=== PATIENT | female | born 1990 | race Two or more races ===

== ENCOUNTER 2017-12-28 07:26 | Emergency (ER) | payer BC, MEDICAID ==
--- NOTE | 2017-12-28 14:27 | ER ---
DATE SEEN: 12/28/2017 TIME SEEN: The patient was seen at approximately 0815 hours. 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 She has had slipped disk and was treated for 2 years with physical therapy. She has had hip pain in 2008 without a fracture. PREVIOUS SURGERY: Negative. ALLERGIES: Negative. MEDICATIONS: Negative. REVIEW OF SYSTEMS: Negative, except for noted above. More specifically, has mid-thoracic and low back pain. It radiates down to her left suprapatellar region. Has mild dysesthesia on and off. It hurts to move, sit, walk, bowel movements, cough or sneeze, or go upstairs. She denies fever, gastrointestinal symptoms, or urinary tract symptoms. No urine loss. No constipation or difficulty passing urine. SOCIAL HISTORY: She does not use street drugs. PHYSICAL EXAMINATION: VITAL SIGNS: Blood pressure on arrival 119/71, mean arterial pressure 81, respirations 18, pulse 61, oxygen saturation 100%, and temperature 97.4 degrees Fahrenheit. Dismissal blood pressure was 109/61, respiratory rate 18, heart rate 63, and 100% oxygen saturation. GENERAL: The patient is attended by her mother. The patient is sitting on a gurney, has marked pain with any movement. Getting off chair and sitting up in the gurney, she gets marked pain. HEENT: PERRLA intact. Pharynx without abnormality. NECK: No thyromegaly or masses in the neck. LUNGS: Clear without rales, rhonchi, or wheezes. HEART: S1, S2. No murmur. No irregular rate or rhythm. ABDOMEN: Soft. No guarding. No abdominal discomfort. MUSCULOSKELETAL: She has mid-thoracic T6 through T9 pain in her spinous and paraspinal muscles and has lower back pain. She has a slight "touch me not" response with touching her back resulting in marked pain response. Straight leg raise is positive on the right at 30 degrees, left at 45 degrees. She has moderate lumbar discomfort, L2 through L5-S1. Minimal paraspinal muscle discomfort. She had difficulty standing and moving about. Mild paraspinal muscle spasm. Paraspinal muscles lumbar and of mid-thoracic. ASSESSMENT: Upper back pain and low back pain, etiology determined. She has had apparently MRI years ago. Rule out radicular pain on the left side as she has pain that radiates to the left popliteal area. PLAN: Robaxin 750 mg q.i.d., 40 tablets. Follow up with her doctor in a week. Also, she is to use Tylenol 1000 mg and ibuprofen 600 mg every 6 hours. Also for breakthrough pain, Vicodin 10 tablets one q.4 to 6 hours. We discussed opioid crisis in country and opiates may be a gateway for further use, and advised her that I would be conservative about providing a number of Vicodin tablets. The patient is excused from work for 6 days. She is also advised on walking as the fastest and most effective way to improve her back pain per the [employer] large study. /[id number] TEJAS/ISAIAH HIGGINS
--- NOTE | 2018-01-01 07:58 | ER ---
DATE SEEN: 12/28/2017 ADDENDUM TIME SEEN: Correction: The patient was seen at 0720 hours and not 0820 hours. /[id number] TEJAS/ISAIAH
== END 2017-12-28 08:55 | disposition home or self-care (01) ==
LOC: FB.ED 07:26
DX: M62.830 Muscle spasm of back (principal)
CPT/HCPCS: 99282; 99283

== ENCOUNTER 2018-09-06 21:14 | Emergency (ER) | payer SELFPAY ==
[2018-09-06] MEDS ORDERED: Ketorolac 60 MG/2 ML SDV IM ONE (21:32)
[2018-09-06] MEDS ORDERED: Albuterol/Ipratropium 3.0-0.5 MG/3 ML Neb Soln NEB ONE (21:32)
--- NOTE | 2018-09-06 21:34 | EDM.PDOC ---
ED HPI GENERAL MEDICAL PROBLEM - General Chief Complaint: Respiratory Problem Stated Complaint: TROUBLE BREATHING, CHEST HURTS Time Seen by Provider: 09/06/18 21:14 Source of Information: Reports: Patient, Family History Limitations: Reports: Respiratory Distress - History of Present Illness INITIAL COMMENTS - FREE TEXT/NARRATIVE: 27 y.o. f came to the ed with her mom due to SOB. Pt has a H/O asthma, but had no asthma symptoms in the past few years and did not renew her albuterol inhaler. She was exposed to extreme cold today what she thinks put here in acute respiratory distress. Py had nonproductive cough, no fever, no chills, Chest pain with cough, denies sick contact, does not smoke. She is exposed to smokers at work, however. 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 No other acute medical issues. 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: Reports: Other (see below) (none) Generalized Pain Score (Numeric/FACES): 5 - Related Data Allergies Allergy/AdvReac Type Severity Reaction Status Date / Time No Known Allergies Allergy Verified 09/06/18 22:14 Home Meds: Home Meds Albuterol [Proventil HFA] 2 puff INH Q4H PRN #1 inhaler 09/06/18 [Rx] predniSONE 20 mg PO WITHBREAKFAST #3 tab 09/06/18 [Rx] 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: Musculoskeletal History: Reports: Back Pain, Chronic - Past Surgical History GI Surgical History: Reports: Appendectomy Social & Family History - Family History Family Medical History: Noncontributory - Caffeine Use Caffeine Use: Reports: Soda ED ROS GENERAL - Review of Systems Review Of Systems: See Below Constitutional: Reports: No Symptoms HEENT: Reports: No Symptoms Respiratory: Reports: Shortness of Breath, Wheezing Cardiovascular: Reports: No Symptoms Endocrine: Reports: No Symptoms GI/Abdominal: Reports: No Symptoms : Reports: No Symptoms Musculoskeletal: Reports: No Symptoms Skin: Reports: No Symptoms Neurological: Reports: No Symptoms Psychiatric: Reports: No Symptoms Hematologic/Lymphatic: Reports: No Symptoms Immunologic: Reports: No Symptoms ED EXAM, GENERAL - Physical Exam Exam: See Below Exam Limited By: Respiratory Distress General Appearance: Alert, WD/WN, Moderate Distress Eye Exam: Bilateral Eye: Normal Inspection Ears: Normal External Exam Ear Exam: Bilateral Ear: Auricle Normal Nose: Normal Inspection, Normal Mucosa, No Blood Throat/Mouth: Normal Lips, Normal Voice, No Airway Compromise Head: Atraumatic, Normocephalic Neck: Normal Inspection, Supple, Non-Tender, Full Range of Motion Respiratory/Chest: Respiratory Distress, Wheezing Cardiovascular: Normal Peripheral Pulses, Regular Rate, Rhythm, No Edema, No Gallop, No Rub Peripheral Pulses: 1+: Brachial (R) GI/Abdominal: Normal Bowel Sounds, Soft, Non-Tender, No Organomegaly, No Abnormal Bruit, No Mass, Pelvis Stable (Female) Exam: Deferred Rectal (Female) Exam: Deferred Back Exam: Normal Inspection, Full Range of Motion Extremities: Normal Inspection, Normal Range of Motion, Non-Tender, No Pedal Edema, Normal Capillary Refill Neurological: Alert, Oriented, CN II-XII Intact, Normal Cognition, Normal Gait Psychiatric: Normal Affect, Normal Mood Skin Exam: Warm, Dry, Intact, Normal Color, No Rash Lymphatic: No Adenopathy Course - Vital Signs Text/Narrative:: 27 y.o. f came to the ed with her mom due to SOB. Pt has a H/O asthma, but had no asthma symptoms in the past few years and did not renew her albuterol inhaler. She was exposed to extreme cold today what she thinks put here in acute respiratory distress. Py had nonproductive cough, no fever, no chills, Chest pain with cough, denies sick contact, does not smoke. She is exposed to smokers at work, however. 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 No other acute medical issues. BP 157/105 RR 22 Pulse ox 97% on RA Temp 35.8 Pulse 95 PE: WNWD female in resp distress, chest pain with inspirations Imaging: CXR: NAD Labs: Not indicated Impression: Asthma attack, possible cold induced. Pleuritic chest pain Tx: Duo neb, Albuterol neb Prednisone. Toradol Reexam: improved 90% Plan: D/C with instructions Last Recorded V/S: Last Vital Signs Temp 35.8 C 09/06/18 21:14 Pulse 78 09/06/18 23:30 Resp 20 09/06/18 23:30 BP 153/90 H 09/06/18 23:30 Pulse Ox 100 09/06/18 23:30 - Orders/Labs/Meds Orders: Active Orders 24 hr Category Date Time Status RT Aerosol Therapy [RC] ASDIRECTED Care 09/06/18 21:33 Active RT Aerosol Therapy [RC] ASDIRECTED Care 09/06/18 22:22 Active Chest 2V [CR] Stat Exams 09/06/18 21:32 Taken Meds: Medications Discontinued Medications Generic Name Dose Route Start Last Admin Trade Name Freq PRN Reason Stop Dose Admin Albuterol 2.5 mg 09/06/18 22:21 09/06/18 22:45 Proventil Neb Soln NEB 09/06/18 22:22 2.5 mg ONETIME ONE Administration Albuterol/Ipratropium 3 ml 09/06/18 21:32 09/06/18 21:53 Duoneb 3.0-0.5 Mg/3 Ml NEB 09/06/18 21:33 3 ml ONETIME ONE Administration Ketorolac Tromethamine 60 mg 09/06/18 21:32 09/06/18 21:49 Toradol IM 09/06/18 21:33 60 mg ONETIME ONE Administration Prednisone 40 mg 09/06/18 22:21 09/06/18 22:45 Prednisone PO 09/06/18 22:22 40 mg ONETIME ONE Administration Departure - Departure Time of Disposition: 23:17 Disposition: Home, Self-Care 01 Condition: Good Clinical Impression: Asthma attack Qualifiers: Asthma severity: moderate Asthma persistence: unspecified Qualified Code(s): J45.901 - Unspecified asthma with (acute) exacerbation - Discharge Information Prescriptions: Albuterol [Proventil HFA] 2 puff INH Q4H PRN #1 inhaler PRN Reason: for cough, SOB predniSONE 20 mg PO WITHBREAKFAST #3 tab Instructions: Asthma, Adult, [id number], Asthma Attack, Prednisone tablets Referrals: Perez Riddle MD [Primary Care Provider] - Forms: ED Department Discharge, ED Return to Work/School Form Additional Instructions: Please use the albuterol inhaler as recommended, prednisone as recommend, please f/u with your PMD, come back if your symptoms get worse acutely. - My Orders Last 24 Hours: My Active Orders 09/06/18 21:32 Chest 2V [CR] Stat 09/06/18 21:33 RT Aerosol Therapy [RC] ASDIRECTED 09/06/18 22:22 RT Aerosol Therapy [RC] ASDIRECTED - Assessment/Plan Last 24 Hours: My Active Orders 09/06/18 21:32 Chest 2V [CR] Stat 09/06/18 21:33 RT Aerosol Therapy [RC] ASDIRECTED 09/06/18 22:22 RT Aerosol Therapy [RC] ASDIRECTED
[2018-09-06] MEDS ORDERED: predniSONE 20 MG Tab PO ONE (22:21)
[2018-09-06] MEDS ORDERED: Albuterol 0.083% 2.5 MG/3 ML Neb Soln NEB ONE (22:21)
--- NOTE | 2018-09-09 13:02 | CR ---
INDICATION: Cough, shortness of breath. CHEST: PA and lateral views of the chest were obtained 09/06/18 and revealed the heart, mediastinum, and bony thorax to be unremarkable. A mild degree of exogenous obesity is suggested. A definite active infiltrate or effusion was not identified. However, there is noted a mild to moderate degree of bronchial wall cuffing in the mid to lower lung mathur, especially the lung bases, which may represent active peribronchial disease and/or fibrosis, and should be correlated clinically. IMPRESSION: Bronchial wall cuffing - correlate clinically. MTDD
== END 2018-09-06 23:30 | disposition home or self-care (01) ==
LOC: FB.ED 21:14
DX: J45.901 Unspecified asthma with (acute) exacerbation (principal); R07.81 Pleurodynia; Z77.22 Contact with and (suspected) exposure to environmental tobacco smoke (acute) (chronic)
CPT/HCPCS: 71046; 87804; 94640; 96372; 99284; A9270; J1885; J7620-GY

== ENCOUNTER 2018-10-26 17:07 | Emergency (ER) | payer SELFPAY ==
[2018-10-26] MEDS ORDERED: Ondansetron 4 MG/2 ML SDV IVPUSH ONE (17:40)
[2018-10-26] MEDS ORDERED: Sodium Chloride 0.9% 1,000 ML IV ONE ×2 (17:40→19:00)
[2018-10-26] MEDS ORDERED: SUMAtriptan 6 MG/0.5 ML SDV SUBCUT ONE (17:40)
--- NOTE | 2018-10-26 17:43 | EDM.PDOC ---
ED HPI GENERAL MEDICAL PROBLEM - General Chief Complaint: Headache Stated Complaint: HEADACHE, LT SIDE PAIN AND VOMITTING Time Seen by Provider: 10/26/18 17:30 Source of Information: Reports: Patient History Limitations: Reports: No Limitations - History of Present Illness INITIAL COMMENTS - FREE TEXT/NARRATIVE: 27 y.o.w.f came to the ed due to nausea and headache at her left temp area. No trauma, pt had migraine H/A in the past. No vomiting, no SOB, pt has pain at her RUQ of her abdomen as well. pt says she drinks about 2 liters of water a day. No other acute medical issues. BP 162/85 RR 16 Pulse ox 100% on RA Temp 36.7 pulse 69 Onset Date: 10/26/18 Onset Time: 15:00 Duration: Hour(s): Location: Reports: Head, Face Quality: Reports: Dull, Same as Previous Episode Severity: Moderate Improves with: Reports: None, Medication Worsens with: Reports: None Context: Reports: Other Headache Pain Score (Numeric/FACES): 7 Abdominal Pain Score (Numeric/FACES): 4 - Related Data Allergies Allergy/AdvReac Type Severity Reaction Status Date / Time No Known Allergies Allergy Verified 10/26/18 17:34 Home Meds: Home Meds Albuterol [Proventil HFA] 2 puff INH Q4H PRN #1 inhaler 09/06/18 [Rx] Acetaminophen [Tylenol] 650 mg PO DAILY 10/26/18 [History] cloNIDine [Catapres] 0.1 mg PO DAILY #4 tab 10/26/18 [Rx] Past Medical History Respiratory History: Reports: Asthma Other Respiratory History: as a child 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: Musculoskeletal History: Reports: Back Pain, Chronic Endocrine/Metabolic History: Reports: Obesity/BMI 30+ - Past Surgical History GI Surgical History: Reports: Appendectomy Female Surgical History: Reports: Tubal Ligation Social & Family History - Family History Family Medical History: Noncontributory - Tobacco Use Smoking Status *Q: Never Smoker - Caffeine Use Caffeine Use: Reports: None - Recreational Drug Use Recreational Drug Use: No ED ROS GENERAL - Review of Systems Review Of Systems: See Below Constitutional: Reports: No Symptoms HEENT: Reports: No Symptoms Respiratory: Reports: No Symptoms Cardiovascular: Reports: No Symptoms Endocrine: Reports: No Symptoms GI/Abdominal: Reports: Abdominal Pain (RUQ) : Reports: No Symptoms Musculoskeletal: Reports: No Symptoms Skin: Reports: No Symptoms Neurological: Reports: No Symptoms Psychiatric: Reports: No Symptoms Hematologic/Lymphatic: Reports: No Symptoms Immunologic: Reports: No Symptoms ED EXAM, GI/ABD - Physical Exam Exam: See Below Exam Limited By: No Limitations General Appearance: Alert, WD/WN, Mild Distress Eyes: Bilateral: Normal Appearance Ears: Normal External Exam Nose: Normal Inspection, Normal Mucosa Throat/Mouth: Normal Inspection, Normal Lips, Normal Voice, No Airway Compromise Head: Atraumatic, Normocephalic Neck: Normal Inspection, Supple, Non-Tender, Full Range of Motion Respiratory/Chest: No Respiratory Distress, Lungs Clear Cardiovascular: Normal Peripheral Pulses, Regular Rate, Rhythm, No Edema, No JVD GI/Abdominal Exam: Normal Bowel Sounds, Tender (RUQ of abdomen) (Female) Exam: Deferred Rectal (Female) Exam: Deferred Back Exam: Normal Inspection, Full Range of Motion Extremities: Normal Inspection, Normal Range of Motion, Non-Tender Neurological: Alert, Oriented, CN II-XII Intact, Normal Cognition, Normal Gait Psychiatric: Normal Affect, Normal Mood Skin Exam: Warm, Dry, Intact, Normal Color, No Rash Lymphatic: No Adenopathy Course - Vital Signs Text/Narrative:: 27 y.o.w.f came to the ed due to nausea and headache at her left temp area. No trauma, pt had migraine H/A in the past. No vomiting, no SOB, pt has pain at her RUQ of her abdomen as well. pt says she drinks about 2 liters of water a day. No other acute medical issues. BP 162/85 RR 16 Pulse ox 100% on RA Temp 36.7 pulse 69 PE: WNWD W F with H/O and nausea Imaging: Not indicated Labs: CBC neg BMP: pos for BUN 27 Cr. 2.8 GFR 24 UA: Micr. Hematuria Impression: Migraine H/A RUQ abd pain, renal insufficiency (GFR) with hematuria. Tx: Dorian, Imitrex, NS Reexam: Her H/A subsided, his CR improved to 2,4 Plan: D/C with instructions Last Recorded V/S: Last Vital Signs Temp 36.8 C 10/26/18 21:41 Pulse 78 10/26/18 21:41 Resp 14 10/26/18 21:41 BP 148/91 H 10/26/18 22:41 Pulse Ox 100 10/26/18 21:41 - Orders/Labs/Meds Orders: Active Orders 24 hr Category Date Time Status Peripheral IV Insertion Adult [OM.PC] Routine Oth 10/26/18 17:55 Ordered Labs: Laboratory Tests 10/26/18 10/26/18 10/26/18 Range/Units 17:55 17:55 17:55 WBC 6.5 (4.5-12.0) X10-3/uL RBC 3.95 (3.23-5.20) x10(6)uL Hgb 11.5 (11.5-15.5) g/dL Hct 34.7 (30.0-51.3) % MCV 87.8 (80-96) fL MCH 29.1 (27.7-33.6) pg MCHC 33.1 (32.2-35.4) g/dL RDW 11.7 (11.5-15.5) % Plt Count 266 (125-369) X10(3)uL MPV 9.5 (7.4-10.4) fL Neut % (Auto) 71.2 (46-82) % Lymph % (Auto) 19.2 (13-37) % Posey % (Auto) 7.0 (4-12) % Eos % (Auto) 2 (1.0-5.0) % Baso % (Auto) 1 (0-2) % Neut # (Auto) 4.6 (1.6-8.3) # Lymph # (Auto) 1.2 (0.6-5.0) # Posey # (Auto) 0.5 (0.0-1.3) # Eos # (Auto) 0.1 (0.0-0.8) # Baso # (Auto) 0.0 (0.0-0.2) # PT 9.9 (8.7-11.1) INR 1.02 (0.89-1.13) Sodium 140 (135-145) mmol/L Potassium 4.4 (3.5-5.3) mmol/L Chloride 107 (100-110) mmol/L Carbon Dioxide 22 (21-32) mmol/L BUN 27 H (7-18) mg/dL Creatinine 2.4 H* (0.55-1.02) mg/dL Est Cr Clr Drug Dosing 26.33 mL/min Estimated GFR (MDRD) 24 L (>60) BUN/Creatinine Ratio 11.3 (9-20) Glucose 89 (80-116) mg/dL Calcium 8.9 (8.6-10.2) mg/dL Total Bilirubin 0.2 (0.1-1.3) mg/dL Direct Bilirubin 0.08 L (0.10-0.20) mg/dL AST 17 (5-25) IU/L ALT 17 (12-36) U/L Alkaline Phosphatase 86 (56-112) IU/L Total Protein 7.0 (6.0-8.0) g/dL Albumin 3.4 L (3.5-5.2) g/dL Urine Color (YELLOW) Urine Appearance (CLEAR) Urine pH (5.0-6.5) Ur Specific [place] (1.010-1.025) Urine Protein (NEGATIVE) mg/dL Urine Glucose (UA) (NORMAL) mg/dL Urine Ketones (NEGATIVE) mg/dL Urine Occult Blood (NEGATIVE) Urine Nitrite (NEGATIVE) Urine Bilirubin (NEGATIVE) Urine Urobilinogen (NEGATIVE) mg/dL Ur Leukocyte Esterase (NEGATIVE) Urine RBC (0-5) Urine WBC (0-5) Ur Squamous Epith Cells (NS,R,O) Urine Bacteria (NS) 10/26/18 10/26/18 Range/Units 19:19 20:30 WBC (4.5-12.0) X10-3/uL RBC (3.23-5.20) x10(6)uL Hgb (11.5-15.5) g/dL Hct (30.0-51.3) % MCV (80-96) fL MCH (27.7-33.6) pg MCHC (32.2-35.4) g/dL RDW (11.5-15.5) % Plt Count (125-369) X10(3)uL MPV (7.4-10.4) fL Neut % (Auto) (46-82) % Lymph % (Auto) (13-37) % Posey % (Auto) (4-12) % Eos % (Auto) (1.0-5.0) % Baso % (Auto) (0-2) % Neut # (Auto) (1.6-8.3) # Lymph # (Auto) (0.6-5.0) # Posey # (Auto) (0.0-1.3) # Eos # (Auto) (0.0-0.8) # Baso # (Auto) (0.0-0.2) # PT (8.7-11.1) INR (0.89-1.13) Sodium 140 (135-145) mmol/L Potassium 4.9 (3.5-5.3) mmol/L Chloride 111 H (100-110) mmol/L Carbon Dioxide 20 L (21-32) mmol/L BUN 25 H (7-18) mg/dL Creatinine 2.1 H* (0.55-1.02) mg/dL Est Cr Clr Drug Dosing 30.10 mL/min Estimated GFR (MDRD) 28 L (>60) BUN/Creatinine Ratio 11.9 (9-20) Glucose 85 (80-116) mg/dL Calcium 7.8 L (8.6-10.2) mg/dL Total Bilirubin (0.1-1.3) mg/dL Direct Bilirubin (0.10-0.20) mg/dL AST (5-25) IU/L ALT (12-36) U/L Alkaline Phosphatase (56-112) IU/L Total Protein (6.0-8.0) g/dL Albumin (3.5-5.2) g/dL Urine Color Yellow (YELLOW) Urine Appearance Slightly cloudy (CLEAR) Urine pH 6.5 (5.0-6.5) Ur Specific [place] 1.005 L (1.010-1.025) Urine Protein 30 H (NEGATIVE) mg/dL Urine Glucose (UA) Normal (NORMAL) mg/dL Urine Ketones Negative (NEGATIVE) mg/dL Urine Occult Blood Large H (NEGATIVE) Urine Nitrite Negative (NEGATIVE) Urine Bilirubin Negative (NEGATIVE) Urine Urobilinogen Normal (NEGATIVE) mg/dL Ur Leukocyte Esterase Negative (NEGATIVE) Urine RBC 75-100 H (0-5) Urine WBC 0-5 (0-5) Ur Squamous Epith Cells Occasional (NS,R,O) Urine Bacteria Rare H (NS) Meds: Medications Discontinued Medications Generic Name Dose Route Start Last Admin Trade Name Joselyn PRN Reason Stop Dose Admin Clonidine HCl 0.1 mg 10/26/18 22:04 10/26/18 22:08 Catapres PO 10/26/18 22:05 0.1 mg ONETIME STA Administration Sodium Chloride 1,000 mls @ 999 mls/hr 10/26/18 17:40 10/26/18 17:57 Normal Saline IV 10/26/18 18:40 999 mls/hr .BOLUS ONE Administration Sodium Chloride 1,000 mls @ 999 mls/hr 10/26/18 19:00 10/26/18 19:01 Normal Saline IV 10/26/18 20:00 999 mls/hr .BOLUS ONE Administration Ondansetron HCl 8 mg 10/26/18 17:40 10/26/18 17:59 Zofran IVPUSH 10/26/18 17:41 8 mg ONETIME ONE Administration Sodium Chloride 10 ml 10/26/18 17:55 10/26/18 17:55 Saline Flush FLUSH 10 ml ASDIRECTED PRN Administration Keep Vein Open Sumatriptan Succinate 6 mg 10/26/18 17:40 10/26/18 18:01 Imitrex SUBCUT 10/26/18 17:41 6 mg ONETIME ONE Administration Departure - Departure Time of Disposition: 21:33 Disposition: Home, Self-Care 01 Condition: Good Clinical Impression: Renal insufficiency, HTN (hypertension) Migraine Qualifiers: Migraine type: without aura Intractability: not intractable - Discharge Information Prescriptions: cloNIDine [Catapres] 0.1 mg PO DAILY #4 tab Instructions: Acute Kidney Injury, Adult, Migraine Headache Referrals: Perez Riddle MD [Primary Care Provider] - Forms: ED Department Discharge, ED Return to Work/School Form Additional Instructions: Please take Tylenol for pain, please f/u with your PMD regarding your renal insufficiency 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 Please come back if your symptoms get worse acutely. - My Orders Last 24 Hours: My Active Orders 10/26/18 17:55 Peripheral IV Insertion Adult [OM.PC] Routine - Assessment/Plan Last 24 Hours: My Active Orders 10/26/18 17:55 Peripheral IV Insertion Adult [OM.PC] Routine
[2018-10-26] MEDS ORDERED: Sodium Chloride 0.9% 10 ML Syringe FLUSH PRN (17:55)
[2018-10-26] MEDS ORDERED: cloNIDine 0.1 MG Tab PO STA (22:04)
== END 2018-10-26 22:56 | disposition home or self-care (01) ==
LOC: FB.ED 17:07
DX: G43.909 Migraine, unspecified, not intractable, without status migrainosus (principal); N28.9 Disorder of kidney and ureter, unspecified; R31.9 Hematuria, unspecified; R10.11 Right upper quadrant pain; I10 Essential (primary) hypertension; Z79.899 Other long term (current) drug therapy
CPT/HCPCS: 36415; 80048; 80076; 81001; 85025; 85610; 96361; 96372; 96374; 99284; A9270; J2405; J3030; J7030

== ENCOUNTER 2018-11-17 16:52 | Emergency (ER) | payer MEDICAID ==
--- NOTE | 2018-11-17 17:46 | EDM.PDOC ---
ED HPI GENERAL MEDICAL PROBLEM - General Chief Complaint: General Stated Complaint: SOB, RENAL FAILURE Time Seen by Provider: 11/17/18 16:52 Source of Information: Reports: Patient, Family History Limitations: Reports: No Limitations - History of Present Illness INITIAL COMMENTS - FREE TEXT/NARRATIVE: 27 y.o.w.f with CRI came to the ED with bilat flank pain and not feeling well. Pt was seen on 10/26/2018 for same. She has an appointment with her voice over artist end of November 2018. No N/V/D or dizziness. No trauma. No F/C. No other acute medical issues. BP 111/88 RR 18 Pulse ox 100% on RA Pulse 94 Temp 36.4 Onset Date: 10/22/18 Onset Time: 08:00 Duration: Day(s):, Week(s):, Intermittent Location: Reports: Back, Pelvis Quality: Reports: Burning, Same as Previous Episode Severity: Mild Improves with: Reports: Medication Worsens with: Reports: Movement Context: Reports: Other Associated Symptoms: Reports: No Other Symptoms manish kidney/flank Pain Score (Numeric/FACES): 8 - Related Data Allergies Allergy/AdvReac Type Severity Reaction Status Date / Time No Known Allergies Allergy Verified 11/17/18 17:10 Home Meds: Home Meds Acetaminophen [Tylenol] 650 mg PO DAILY 10/26/18 [History] cloNIDine [Catapres] 0.1 mg PO DAILY #4 tab 10/26/18 [Rx] levoFLOXacin [Levofloxacin] 250 mg PO DAILY #10 tablet 11/17/18 [Rx] Past Medical History Respiratory History: Reports: Asthma Other Respiratory History: as a child 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: Musculoskeletal History: Reports: Back Pain, Chronic Endocrine/Metabolic History: Reports: Obesity/BMI 30+ - Past Surgical History GI Surgical History: Reports: Appendectomy Female Surgical History: Reports: Tubal Ligation Social & Family History - Family History Family Medical History: Noncontributory - Caffeine Use Caffeine Use: Reports: None ED ROS GENERAL - Review of Systems Review Of Systems: See Below Constitutional: Reports: No Symptoms HEENT: Reports: No Symptoms Respiratory: Reports: No Symptoms Cardiovascular: Reports: No Symptoms Endocrine: Reports: No Symptoms GI/Abdominal: Reports: No Symptoms : Reports: Dysuria, Flank Pain (bilaterally) Musculoskeletal: Reports: No Symptoms Skin: Reports: No Symptoms Neurological: Reports: No Symptoms Psychiatric: Reports: No Symptoms Hematologic/Lymphatic: Reports: No Symptoms Immunologic: Reports: No Symptoms ED EXAM, GENERAL - Physical Exam Exam: See Below Exam Limited By: No Limitations General Appearance: Alert, WD/WN, Mild Distress Eye Exam: Bilateral Eye: Normal Inspection Ears: Normal External Exam Ear Exam: Bilateral Ear: Auricle Normal Nose: Normal Inspection, Normal Mucosa Throat/Mouth: Normal Inspection, Normal Lips, Normal Voice, No Airway Compromise Head: Atraumatic, Normocephalic Neck: Normal Inspection, Supple, Non-Tender, Full Range of Motion Respiratory/Chest: No Respiratory Distress, Lungs Clear, Normal Breath Sounds, No Accessory Muscle Use, Chest Non-Tender Cardiovascular: Normal Peripheral Pulses, Regular Rate, Rhythm, No Edema, No Gallop, No JVD, No Murmur GI/Abdominal: Normal Bowel Sounds, Soft, Non-Tender, No Abnormal Bruit, No Mass , Pelvis Stable (Female) Exam: Deferred Rectal (Female) Exam: Deferred Back Exam: Normal Inspection, Full Range of Motion Extremities: Normal Inspection, Normal Range of Motion, Non-Tender, Normal Capillary Refill Neurological: Alert, Oriented, CN II-XII Intact, Normal Cognition, Normal Gait Psychiatric: Normal Affect, Normal Mood Skin Exam: Warm, Dry, Intact, Pallor Lymphatic: No Adenopathy Course - Vital Signs Text/Narrative:: 27 y.o.w.f with CRI came to the ED with bilat flank pain and not feeling well. Pt was seen on 10/26/2018 for same. She has an appointment with her voice over artist end of November 2018. No N/V/D or dizziness. No trauma. No F/C. No other acute medical issues. BP 111/88 RR 18 Pulse ox 100% on RA Pulse 94 Temp 36.4 PE: WNWD pale appearing female wit bilat flank pain and painful urination. Imaging: CT abd/pelvis: Multiple intrarenal, nonobstructing stones. Please see report Labs: CBC Nl except HGB was 11.3 BMP was pos for BUN 24 Cr. 2.4 GFR 24 UA: Pos for UTI with hematuria Impression: Nonobstructing intrarenal calculi, bilat. UTI with hematuria Tx: Levoquine 500mg first does, then 250 mg daily for 10 days. Needs pharmacist' s eval. Reexam: Pt was doing better Plan: D/C with instructions Last Recorded V/S: Last Vital Signs Temp 36.4 C 11/17/18 17:00 Pulse 68 11/17/18 19:10 Resp 18 11/17/18 19:10 BP 115/70 11/17/18 19:10 Pulse Ox 100 11/17/18 19:10 - Orders/Labs/Meds Orders: Active Orders 24 hr Category Date Time Status Abdomen Pelvis wo Cont [CT] Stat Exams 11/17/18 18:04 Taken CULTURE URINE [RM] Stat Lab 11/17/18 17:25 Received Labs: Laboratory Tests 11/17/18 11/17/18 11/17/18 Range/Units 17:15 17:15 17:25 WBC 10.7 (4.5-12.0) X10-3/uL RBC 3.69 (3.23-5.20) x10(6)uL Hgb 11.3 L (11.5-15.5) g/dL Hct 32.5 (30.0-51.3) % MCV 88.2 (80-96) fL MCH 30.6 (27.7-33.6) pg MCHC 34.8 (32.2-35.4) g/dL RDW 11.9 (11.5-15.5) % Plt Count 294 (125-369) X10(3)uL MPV 8.8 (7.4-10.4) fL Neut % (Auto) 67.3 (46-82) % Lymph % (Auto) 23.4 (13-37) % [place] % (Auto) 6.7 (4-12) % Eos % (Auto) 2 (1.0-5.0) % Baso % (Auto) 1 (0-2) % Neut # (Auto) 7.2 (1.6-8.3) # Lymph # (Auto) 2.5 (0.6-5.0) # [place] # (Auto) 0.7 (0.0-1.3) # Eos # (Auto) 0.2 (0.0-0.8) # Baso # (Auto) 0.1 (0.0-0.2) # Sodium 140 (135-145) mmol/L Potassium 4.1 (3.5-5.3) mmol/L Chloride 105 D (100-110) mmol/L Carbon Dioxide 23 (21-32) mmol/L BUN 24 H (7-18) mg/dL Creatinine 2.4 H* (0.55-1.02) mg/dL Est Cr Clr Drug Dosing 27.60 mL/min Estimated GFR (MDRD) 24 L (>60) BUN/Creatinine Ratio 10.0 (9-20) Glucose 98 (80-116) mg/dL Calcium 8.7 (8.6-10.2) mg/dL Total Bilirubin 0.3 (0.1-1.3) mg/dL Direct Bilirubin 0.07 L (0.10-0.20) mg/dL AST 14 D (5-25) IU/L ALT 20 D (12-36) U/L Alkaline Phosphatase 85 (56-112) IU/L Total Protein 7.2 (6.0-8.0) g/dL Albumin 3.6 (3.5-5.2) g/dL Amylase 70 (25-115) U/L Urine Color Yellow (YELLOW) Urine Appearance Clear (CLEAR) Urine pH 5.0 (5.0-6.5) Ur Specific [place] 1.015 (1.010-1.025) Urine Protein 100 H (NEGATIVE) mg/dL Urine Glucose (UA) Normal (NORMAL) mg/dL Urine Ketones Negative (NEGATIVE) mg/dL Urine Occult Blood Large H (NEGATIVE) Urine Nitrite Negative (NEGATIVE) Urine Bilirubin Negative (NEGATIVE) Urine Urobilinogen Normal (NEGATIVE) mg/dL Ur Leukocyte Esterase Small H (NEGATIVE) Urine RBC (0-5) Urine WBC (0-5) Ur Squamous Epith Cells (NS,R,O) Urine Bacteria (NS) Urine HCG, Qual (NEGATIVE) 11/17/18 11/17/18 Range/Units 17:25 17:25 WBC (4.5-12.0) X10-3/uL RBC (3.23-5.20) x10(6)uL Hgb (11.5-15.5) g/dL Hct (30.0-51.3) % MCV (80-96) fL MCH (27.7-33.6) pg MCHC (32.2-35.4) g/dL RDW (11.5-15.5) % Plt Count (125-369) X10(3)uL MPV (7.4-10.4) fL Neut % (Auto) (46-82) % Lymph % (Auto) (13-37) % [place] % (Auto) (4-12) % Eos % (Auto) (1.0-5.0) % Baso % (Auto) (0-2) % Neut # (Auto) (1.6-8.3) # Lymph # (Auto) (0.6-5.0) # [place] # (Auto) (0.0-1.3) # Eos # (Auto) (0.0-0.8) # Baso # (Auto) (0.0-0.2) # Sodium (135-145) mmol/L Potassium (3.5-5.3) mmol/L Chloride (100-110) mmol/L Carbon Dioxide (21-32) mmol/L BUN (7-18) mg/dL Creatinine (0.55-1.02) mg/dL Est Cr Clr Drug Dosing mL/min Estimated GFR (MDRD) (>60) BUN/Creatinine Ratio (9-20) Glucose (80-116) mg/dL Calcium (8.6-10.2) mg/dL Total Bilirubin (0.1-1.3) mg/dL Direct Bilirubin (0.10-0.20) mg/dL AST (5-25) IU/L ALT (12-36) U/L Alkaline Phosphatase (56-112) IU/L Total Protein (6.0-8.0) g/dL Albumin (3.5-5.2) g/dL Amylase (25-115) U/L Urine Color Yellow (YELLOW) Urine Appearance Clear (CLEAR) Urine pH 5.0 (5.0-6.5) Ur Specific [place] 1.015 (1.010-1.025) Urine Protein 500 H (NEGATIVE) mg/dL Urine Glucose (UA) Normal (NORMAL) mg/dL Urine Ketones Negative (NEGATIVE) mg/dL Urine Occult Blood Large H (NEGATIVE) Urine Nitrite Negative (NEGATIVE) Urine Bilirubin Negative (NEGATIVE) Urine Urobilinogen Normal (NEGATIVE) mg/dL Ur Leukocyte Esterase Moderate H (NEGATIVE) Urine RBC 30-40 H (0-5) Urine WBC 10-20 H (0-5) Ur Squamous Epith Cells Few H (NS,R,O) Urine Bacteria Many H (NS) Urine HCG, Qual Negative (NEGATIVE) Meds: Medications Discontinued Medications Generic Name Dose Route Start Last Admin Trade Name Joselyn PRN Reason Stop Dose Admin Levofloxacin 500 mg 11/17/18 18:12 11/17/18 18:51 Levaquin PO 11/17/18 18:13 500 mg ONETIME ONE Administration Departure - Departure Time of Disposition: 19:47 Disposition: Home, Self-Care 01 Condition: Good Clinical Impression: UTI (urinary tract infection) Qualifiers: Urinary tract infection type: acute cystitis Hematuria presence: with hematuria Qualified Code(s): N30.01 - Acute cystitis with hematuria - Discharge Information Prescriptions: levoFLOXacin [Levofloxacin] 250 mg PO DAILY #10 tablet Instructions: Urinary Tract Infection, Adult, Levofloxacin tablets Referrals: Perez Riddle MD [Primary Care Provider] - Forms: ED Department Discharge, ED Return to Work/School Form Additional Instructions: Please increase water intake, please take the Abx as recommended, Increase water intake, please f/u as scheduled end of November. Please come back if your symptoms get worse acutely - My Orders Last 24 Hours: My Active Orders 11/17/18 17:25 CULTURE URINE [RM] Stat 11/17/18 18:04 Abdomen Pelvis wo Cont [CT] Stat - Assessment/Plan Last 24 Hours: My Active Orders 11/17/18 17:25 CULTURE URINE [RM] Stat 11/17/18 18:04 Abdomen Pelvis wo Cont [CT] Stat
[2018-11-17] MEDS ORDERED: Levofloxacin 500 MG Tab PO ONE (18:12)
== END 2018-11-17 20:05 | disposition home or self-care (01) ==
LOC: FB.ED 16:52
DX: N30.01 Acute cystitis with hematuria (principal); N20.0 Calculus of kidney; E66.9 Obesity, unspecified; Z68.31 Body mass index [BMI] 31.0-31.9, adult
CPT/HCPCS: 36415; 74176; 80048; 80076; 81001; 81003; 81025; 82150; 85025; 87086; 87088; 87186; 99284; A9270

== ENCOUNTER 2019-09-05 20:14 | Emergency (ER) | payer MEDICAID, OTHER ==
[2019-09-05] MEDS ORDERED: Oseltamivir 75 MG Cap PO ONE (21:55)
[2019-09-05] MEDS ORDERED: Acetaminophen 500 MG Tab PO ONE (21:58)
--- NOTE | 2019-09-05 22:01 | EDM.PDOC ---
ED HPI GENERAL MEDICAL PROBLEM - General Stated Complaint: CHILLS; HEAD ACHE; NAUSEA Time Seen by Provider: 09/05/19 20:30 Source of Information: Reports: Patient History Limitations: Reports: No Limitations - History of Present Illness INITIAL COMMENTS - FREE TEXT/NARRATIVE: pt has fever chills minimal cough , with chest congestion for 2 days , states she has been taking Coricidin HBP and other OTC medications , Symptoms are not improving has body aches and pain and myalgia no nausea or vomiting noted states she is not allowed to take ibuprofen and tylenol : takes only coricidin hbp - Related Data Allergies Allergy/AdvReac Type Severity Reaction Status Date / Time No Known Allergies Allergy Verified 11/17/18 17:10 Home Meds: Home Meds Acetaminophen [Tylenol] 650 mg PO DAILY 10/26/18 [History] cloNIDine [Catapres] 0.1 mg PO DAILY #4 tab 10/26/18 [Rx] levoFLOXacin [Levofloxacin] 250 mg PO DAILY #10 tablet 11/17/18 [Rx] Oseltamivir [Tamiflu] 75 mg PO BID 5 Days #10 cap 09/05/19 [Rx] Past Medical History Respiratory History: Reports: Asthma Other Respiratory History: as a child Genitourinary History: Reports: Renal Disease 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: Musculoskeletal History: Reports: Back Pain, Chronic Endocrine/Metabolic History: Reports: Obesity/BMI 30+ - Past Surgical History GI Surgical History: Reports: Appendectomy Female Surgical History: Reports: Tubal Ligation Social & Family History - Family History Family Medical History: Noncontributory - Caffeine Use Caffeine Use: Reports: None ED ROS GENERAL - Review of Systems Review Of Systems: See Below Constitutional: Reports: Fever, Chills, Malaise, Weakness, Fatigue, Decreased Appetite HEENT: Reports: No Symptoms, Throat Pain Respiratory: Reports: Cough Cardiovascular: Reports: No Symptoms. Denies: Chest Pain, Dyspnea on Exertion Endocrine: Reports: Fatigue GI/Abdominal: Reports: No Symptoms : Reports: No Symptoms Musculoskeletal: Reports: Muscle Pain Skin: Reports: No Symptoms Neurological: Reports: No Symptoms ED EXAM, GENERAL - Physical Exam Exam: See Below Free Text/Narrative:: Ill looking Exam Limited By: No Limitations General Appearance: Alert, WD/WN Eye Exam: Bilateral Eye: EOMI Ear Exam: Bilateral Ear: TM Dull Nose: Normal Mucosa Throat/Mouth: Normal Oropharynx Head: Atraumatic Neck: Supple, Non-Tender, Full Range of Motion Respiratory/Chest: Lungs Clear, Normal Breath Sounds, Chest Non-Tender Cardiovascular: Regular Rate, Rhythm GI/Abdominal: Soft, Non-Tender Extremities: Normal Range of Motion, Non-Tender Neurological: Alert, Oriented Psychiatric: Normal Affect, Normal Mood Course - Orders/Labs/Meds Orders: Active Orders 24 hr Category Date Time Status CULTURE STREP A CONFIRMATION [] Stat Lab 09/05/19 20:40 Results STREP SCRN A RAPID W CULT CONF [] Stat Lab 09/05/19 20:40 Results Labs: Laboratory Tests 09/05/19 09/05/19 Range/Units 20:50 20:50 WBC 7.5 (4.5-12.0) X10-3/uL RBC 3.98 (3.23-5.20) x10(6)uL Hgb 12.5 (11.5-15.5) g/dL Hct 36.9 (30.0-51.3) % MCV 92.5 (80-96) fL MCH 31.3 (27.7-33.6) pg MCHC 33.9 (32.2-35.4) g/dL RDW 14.8 (11.5-15.5) % Plt Count 270 (125-369) X10(3)uL MPV 8.0 (7.4-10.4) fL Add Manual Diff Yes Neutrophils % (Manual) 80 (46-82) % Band Neutrophils % 3 (0-6) % Lymphocytes % (Manual) 10 L (13-37) % Monocytes % (Manual) 6 (4-12) % Eosinophils % (Manual) 1 (0-5) % Sodium 141 (135-145) mmol/L Potassium 3.9 (3.5-5.3) mmol/L Chloride 102 (100-110) mmol/L Carbon Dioxide 27 (21-32) mmol/L BUN 11 D (7-18) mg/dL Creatinine 1.8 H (0.55-1.02) mg/dL Est Cr Clr Drug Dosing TNP Estimated GFR (MDRD) 33 L (>60) BUN/Creatinine Ratio 6.1 L (9-20) Glucose 105 (80-116) mg/dL Calcium 9.2 (8.6-10.2) mg/dL Meds: Medications Discontinued Medications Generic Name Dose Route Start Last Admin Trade Name Joselyn PRN Reason Stop Dose Admin Oseltamivir Phosphate 75 mg 09/05/19 21:55 Tamiflu PO 09/05/19 21:56 ONETIME ONE Departure - Departure Time of Disposition: 22:15 Disposition: Home, Self-Care 01 Condition: Fair Clinical Impression: Influenza B - Discharge Information *PRESCRIPTION DRUG MONITORING PROGRAM REVIEWED*: Not Applicable *COPY OF PRESCRIPTION DRUG MONITORING REPORT IN PATIENT CAT: Not Applicable Prescriptions: Oseltamivir [Tamiflu] 75 mg PO BID 5 Days #10 cap Instructions: Influenza, Adult, [id number], Viral Respiratory Infection, Easy -To-Read Referrals: Perez Riddle MD [Primary Care Provider] - Additional Instructions: 1) Increase fluid intake 2) Take tylenol 1000mg 3 times a day as needed 3) Follow up with you PCP as needed 4) Call with any concerns - My Orders Last 24 Hours: My Active Orders 09/05/19 20:40 CULTURE STREP A CONFIRMATION [RM] Stat STREP SCRN A RAPID W CULT CONF [] Stat - Assessment/Plan Last 24 Hours: My Active Orders 09/05/19 20:40 CULTURE STREP A CONFIRMATION [] Stat STREP SCRN A RAPID W CULT CONF [] Stat
== END 2019-09-05 22:30 | disposition home or self-care (01) ==
LOC: FB.ED 20:14
DX: J10.1 Influenza due to other identified influenza virus with other respiratory manifestations (principal); J45.909 Unspecified asthma, uncomplicated; E66.9 Obesity, unspecified; Z68.39 Body mass index [BMI] 39.0-39.9, adult
CPT/HCPCS: 36415; 80048; 85025; 87081; 87804; 87880; 99284; A9270